=== PATIENT | female | born 1995 | race Caucasian/White ===

== ENCOUNTER 2016-10-01 18:41 | Emergency (ER) | payer BC, MEDICAID ==
[2016-10-01 19:32] VITALS: BP 107/62
--- NOTE | 2016-10-01 20:44 | UC ---
Complaint Female HPI - HPI Summary HPI Summary: pt states she has vaginal swelling and itching and discharge x 5 days. States she has not had intercourse in 2.5 months and states she has never had an STD, so does not think she has an STD. States she has acute severe pain right at the urethral meatus. No hematuria. No dysuria. No blister lesions. States she was tested for STD's after her last intercourse and it was negative. States her body is "just getting back to normal". States she had an more than a year ago and she bled every day for almost a year. States she has had BV before and this feels like BV. - History Of Current Complaint Chief Complaint: UCGU Stated Complaint: PERSONAL Time Seen by Provider: 10/01/16 19:56 Hx Obtained From: Patient Hx Last Menstrual Period: 09/21/16 Onset/Duration: Gradual Onset, Lasting Days, Still Present Timing: Constant Severity Initially: Moderate Severity Currently: Moderate Pain Intensity: 7 Pain Scale Used: 0-10 Numeric Character: Burning Aggravating Factor(s): Nothing Alleviating Factor(s): Nothing Associated Signs And Symptoms: Positive: Vaginal Discharge, Genital Swelling. Negative: Fever, Nausea, Vomiting(# Of Episodes =), Genital Blisters - Allergies/Home Medications Allergies/Adverse Reactions: Allergies Allergy/AdvReac Type Severity Reaction Status Date / Time Ketorolac Tromethamine Allergy Hives Verified 10/01/16 19:32 [From Toradol] Tamsulosin [From Flomax] Allergy Hives Verified 10/01/16 19:32 albuterol ? Allergy temporary Uncoded 10/01/16 19:32 paralysis control pills Allergy Bleeding Uncoded 10/01/16 19:35 PMH/Surg Hx/FS Hx/Imm Hx Previously Healthy: Yes - Surgical History Surgical History: Yes Surgery Procedure, Year, and Place: JAW SXl wisdom teeth, right breast benign tumor 2014 - Family History Known Family History: Positive: None - Social History Alcohol Use: Occasionally Substance Use Type: None Smoking Status (MU): Never Smoked Tobacco Have You Smoked in the Last Year: No Household Exposure Type: Cigarettes - Immunization History Vaccination Up to Date: Yes Review of Systems Constitutional: Negative Skin: Negative Eyes: Negative ENT: Negative Respiratory: Negative Cardiovascular: Negative Gastrointestinal: Negative Genitourinary: Other - vag discharge, itching Motor: Negative Neurovascular: Negative Musculoskeletal: Negative Neurological: Negative Psychological: Negative All Other Systems Reviewed And Are Negative: Yes Physical Exam Triage Information Reviewed: Yes Appearance: Well-Appearing, Well-Nourished, Pain Distress Vital Signs: Initial Vital Signs Temp 98.4 F 10/01/16 19:26 Pulse 80 10/01/16 19:26 Resp 18 10/01/16 19:26 BP 107/62 10/01/16 19:26 Vital Signs Reviewed: Yes Eyes: Positive: Conjunctiva Clear ENT: Positive: Normal ENT inspection Neck: Positive: Supple Respiratory: Positive: No respiratory distress Cardiovascular: Positive: Brisk Capillary Refill Abdomen Description: Positive: Nontender, No Organomegaly, Soft, Other: - Pelvic exam: moderate amount thin white discharge; cervix nontender, closed; uterus nontender, mobile; adnexae no masses, nontender; labial swelling; no blisters or fissure or lesion near urethral meatus. Negative: Distended, Guarding, McBurney's Point Tenderness, Peritoneal Signs Bowel Sounds: Positive: Present Musculoskeletal: Positive: Strength Intact, ROM Intact Neurological: Positive: Alert, Muscle Tone Normal Psychological Exam: Normal Skin Exam: Normal Complaint Female Dx - Course Course Of Treatment: pelvic exam done, cultures sent. Will treat empirically for both BV and palak. Can stop flagyl if affirm is negative. - Differential Dx/Diagnosis Differential Diagnosis/HQI/PQRI: Cervicitis, Pelvic Inflammatory Disease, Sexually Transmitted Disease, Urinary Tract Infection Provider Diagnoses: vaginitis Discharge - Discharge Plan Condition: Stable Disposition: HOME Prescriptions: Fluconazole 150 MG (NF) [Diflucan 150 mg (NF)] 150 mg PO ONCE #2 tab Metronidazole [Flagyl 500 MG TAB] 500 mg PO BID #14 tab Triamcinolone 0.1% CREAM (NF) [Kenalog 0.1% Cream (NF)] 1 applic TOPICAL BID #1 tube Patient Education Materials: Bacterial Vaginosis (ED), Vulvovaginal Candidiasis (ED) Referrals: Nellie Johansen MD [Medical Doctor] - Additional Instructions: We have sent the pelvic cultures and tests. We have decided to treat for BV and a yeast infection because you have such severe symptoms, we want to start treatment right away. We will contact you if you need additional treatment based on the tests we have sent, and we will contact you if you may stop any treatment based on the tests. You may apply a small amount of steroid cream externally to the labia to help with swelling and itching. If it makes it worse, you do not have to continue it. You may also continue your vagisil and Summer[employer] Veronica products if they do not make it worse. Return to urgent care if you have any new or worsening symptoms.
--- NOTE | 2016-10-04 07:11 | UC ---
Progress - Progress Note Progress Note: notify pt no BV stop flagyl recheck with her MD if still symptomatic
== END 2016-10-01 20:43 | disposition home or self-care (01) ==
LOC: UCCORT 18:41
DX: N76.0 Acute vaginitis (principal)
CPT/HCPCS: 81003; 84702; 87086; 87480; 87491; 87510; 87591; 87661; 99212; G0463

== ENCOUNTER 2017-03-28 12:52 | Emergency (ER) | payer BC, MEDICAID ==
[2017-03-28 13:09] VITALS: BP 122/74
--- NOTE | 2017-03-28 13:31 | UC ---
Cardiac HPI - HPI Summary HPI Summary: 21 year old female presents with severe left sided chest pain. On a side note she was placed ZPAK for a sinus infection a week ago. - History of Current Complaint Chief Complaint: UCChestPain Stated Complaint: CHEST PAIN Time Seen by Provider: 03/28/17 13:22 Hx Obtained From: Patient Hx Last Menstrual Period: 03/24/17 Onset/Duration: Sudden Onset, Lasting Days Initial Severity: Severe Current Severity: Severe Chest Pain Location: Left Anterior Character: Fast Aggravating Factor(s): Exertion Alleviating Factor(s): Position Associated Signs & Symptoms: Positive: Chest Pain - Allergy/Home Medications Allergies/Adverse Reactions: Allergies Allergy/AdvReac Type Severity Reaction Status Date / Time Ketorolac Tromethamine Allergy Hives Verified 03/28/17 13:00 [From Toradol] Tamsulosin [From Flomax] Allergy Hives Verified 03/28/17 13:00 albuterol ? Allergy temporary Uncoded 03/28/17 13:00 paralysis control pills Allergy Bleeding Uncoded 03/28/17 13:00 Home Medications: Home Medications Azithromycin TAB* [Zithromax TAB (Z-KALEY) 250 mg #6 tabs] 250 mg PO DAILY [History Confirmed 03/28/17] Nortriptyline CAP* [Pamelor CAP*] 10 mg PO BEDTIME 03/28/17 [History Confirmed 03/28/17] PMH/Surg Hx/FS Hx/Imm Hx - Surgical History Surgical History: Yes Surgery Procedure, Year, and Place: JAW SXl wisdom teeth, right breast benign tumor 2014 - Family History Known Family History: Positive: None - Social History Alcohol Use: Occasionally Substance Use Type: None Smoking Status (MU): Never Smoked Tobacco Have You Smoked in the Last Year: No Household Exposure Type: Cigarettes - Immunization History Vaccination Up to Date: Yes Review of Systems Constitutional: Negative Skin: Negative Eyes: Negative ENT: Negative Respiratory: Negative Cardiovascular: Palpitations, Chest Pain Gastrointestinal: Negative Genitourinary: Negative Motor: Negative Neurovascular: Negative Musculoskeletal: Negative Neurological: Negative Psychological: Negative All Other Systems Reviewed And Are Negative: Yes Physical Exam Triage Information Reviewed: Yes Appearance: Ill-Appearing Vital Signs: Initial Vital Signs Temp 36.8 C 03/28/17 13:02 Pulse 113 03/28/17 13:02 Resp 20 03/28/17 13:02 BP 122/74 03/28/17 13:02 Pulse Ox 100 03/28/17 13:02 Vital Signs Reviewed: Yes Eye Exam: Normal ENT Exam: Normal Dental Exam: Normal Neck exam: Normal Neck: Positive: 1 Respiratory Exam: Normal Cardiovascular Exam: Normal Abdominal Exam: Normal Musculoskeletal Exam: Normal Neurological Exam: Normal Psychological Exam: Normal Skin Exam: Normal - Clinical Impression Provider Diagnoses: chest pain Discharge - Discharge Plan Condition: Stable Disposition: OTHER Discharge Disposition Comment: patient suggested to go to the er for chets pain Patient Education Materials: Chest Pain (ED) Referrals: BRANDI Gomez [Primary Care Provider] - Additional Instructions: patient suggested to go to the er.
== END 2017-03-28 13:30 ==
LOC: UCCORT 12:52
DX: R07.89 Other chest pain (principal); R00.0 Tachycardia, unspecified; Z88.5 Allergy status to narcotic agent; Z77.22 Contact with and (suspected) exposure to environmental tobacco smoke (acute) (chronic)
CPT/HCPCS: 93005; 99212; G0463

== ENCOUNTER 2017-04-30 15:25 | Emergency (ER) | payer BC, MEDICAID ==
[2017-04-30 15:45] VITALS: BP 125/98
== END 2017-04-30 17:28 | disposition left against medical advice (07) ==
LOC: UCCORT 15:25
DX: M79.601 Pain in right arm (principal); Y35.811A Legal intervention involving manhandling, law enforcement official injured, initial encounter; Z53.21 Procedure and treatment not carried out due to patient leaving prior to being seen by health care provider

== ENCOUNTER 2017-11-17 17:23 | Emergency (ER) | payer BC, MEDICAID ==
[2017-11-17 17:52] VITALS: BP 106/69
--- NOTE | 2017-11-17 18:49 | UC ---
Throat Pain/Nasal Yared HPI - HPI Summary HPI Summary: 22-year-old female presents with 3 day history of nasal congestion, hoarseness, and a nonproductive cough. She is also complaining of feeling the urge to urinate but having to strain to void. She denies any fever, chills, ear pain or drainage, sore throat, chest pain, shortness of breath, abdominal pain, nausea, vomiting, dysuria, frequency, hematuria, or vaginal discharge. She is presently having her menses. She states that she was hospitalized about a week and a half ago at [facility] for pancreatitis of unknown cause. She states she has had in upper endoscopy done while in the hospital and she is scheduled for testing including a HIDA scan and colonoscopy. - History of Current Complaint Chief Complaint: UCGeneralIllness Stated Complaint: URINARY, CONGESTION Time Seen by Provider: 11/17/17 18:14 Hx Obtained From: Patient Hx Last Menstrual Period: 11/15/17 ?: No Onset/Duration: Gradual Onset Pain Intensity: 0 Cough: Nonproductive Associated Signs & Symptoms: Positive: Hoarseness, Nasal Discharge. Negative: Dysphagia, Wheezing, Sinus Discomfort, Fever, Vomiting, Rash - Allergies/Home Medications Allergies/Adverse Reactions: Allergies Allergy/AdvReac Type Severity Reaction Status Date / Time albuterol Allergy See Comment Verified 11/17/17 17:43 ketorolac [From Toradol] Allergy Hives Verified 11/17/17 17:43 tamsulosin [From Flomax] Allergy Hives Verified 11/17/17 17:43 venlafaxine [From Effexor] Allergy "All of Verified 11/17/17 17:43 them, every single side effect you can think of." control pill Allergy Bleeding Uncoded 11/17/17 17:43 Home Medications: Home Medications Bisacodyl EC TAB* [Dulcolax EC TAB*] 5 - 10 mg PO DAILY PRN 11/17/17 [History Confirmed 11/17/17] Fluticasone NASAL SPRAY 50MCG* [Flonase NASAL SPRAY 50MCG*] 2 spray BOTH NARES DAILY PRN 11/17/17 [History Confirmed 11/17/17] Gabapentin CAP(*) [Neurontin 100 mg CAP(*)] 100 mg PO TID 11/17/17 [History Confirmed 11/17/17] diPHENhydraMINE PO* [Benadryl PO 25 MG TAB*] 50 mg PO DAILY 11/17/17 [History Confirmed 11/17/17] PMH/Surg Hx/FS Hx/Imm Hx Previously Healthy: Yes Other Neurological History: Postconcussive syndrome Other Psychological History: Pancreatitis - Surgical History Surgical History: Yes Surgery Procedure, Year, and Place: JAW SXl wisdom teeth, right breast benign tumor 2014 - Family History Family History: Noncontributory - Social History Occupation: Employed Full-time Lives: With Family Alcohol Use: None Substance Use Type: None Smoking Status (MU): Never Smoked Tobacco Have You Smoked in the Last Year: No Household Exposure Type: Cigarettes - Immunization History Vaccination Up to Date: Yes Review of Systems Constitutional: Negative Skin: Negative Eyes: Negative ENT: Nasal Discharge, Sinus Congestion Respiratory: Cough Cardiovascular: Negative Gastrointestinal: Negative Genitourinary: Urgency, Other - urinary hesitency Is Patient Immunocompromised?: No All Other Systems Reviewed And Are Negative: Yes Physical Exam Triage Information Reviewed: Yes Appearance: Well-Appearing, No Pain Distress Vital Signs: Initial Vital Signs Temp 97.3 F 11/17/17 17:39 Pulse 90 11/17/17 17:39 Resp 16 11/17/17 17:39 BP 106/69 11/17/17 17:39 Pulse Ox 100 11/17/17 17:39 Vital Signs Reviewed: Yes Eyes: Positive: Conjunctiva Clear. Negative: Discharge ENT: Positive: Pharyngeal erythema - Mild with cobblestoning, Nasal congestion, TMs normal, Hoarse voice, Uvula midline. Negative: Tonsillar swelling, Tonsillar exudate, Trismus, Muffled voice, Sinus tenderness Neck: Positive: Supple, Nontender, No Lymphadenopathy Respiratory: Positive: Lungs clear, Normal breath sounds, No respiratory distress Cardiovascular: Positive: RRR, No Murmur Abdomen Description: Positive: Nontender, No Organomegaly, Soft. Negative: CVA Tenderness (R), CVA Tenderness (L) Bowel Sounds: Positive: Present Neurological: Positive: Alert Skin Exam: Normal Throat Pain/Nasal Course/Dx - Course Course Of Treatment: 22-year-old female presents with multiple complaints. For past 3 days she has noted nasal congestion, hoarseness, and nonproductive cough. She is also complaining of having the urge to urinate but needing to strain in order to avoid over the same time period. She is providing a history of recent hospitalization for pancreatitis of unknown cause however she is very vague regarding details of this hospitalization. She states that she underwent an endoscopy that was negative as well has what sounds like a HIDA scan which she says was not done improperly and asked to be rescheduled. She also states that she is scheduled for a colonoscopy although unsure of exact date. She is afebrile, vital signs are stable, and she is nontoxic in appearance. Her upper respiratory symptoms are consistent with a viral infection. Urinalysis shows 1 + protein, trace glucose, 1+ ketones, 2+ blood, and 1+ bilirubin however she is presently having her menses therefore do not feel that this represents a urinary tract infection. Urine was negative. Urine culture was sent. Recommend symptomatic treatment for her upper respiratory infection, follow up with primary care provider in 3 days for reevaluation of her urinary symptoms pending the culture results. - Differential Dx/Diagnosis Provider Diagnoses: Viral URI, urinary hesitancy Discharge - Sign-Out/Discharge Documenting (check all that apply): Patient Departure All imaging exams completed and their final reports reviewed: No Studies - Discharge Plan Condition: Stable Disposition: HOME Patient Education Materials: Upper Respiratory Infection (ED) Referrals: Katina Moore [Primary Care Provider] - 3 Days Additional Instructions: Your urine test in the office today did not show any evidence of urinary tract infection. I will send the urine for culture to see if any bacteria grow out. It will take 48-72 hours to get these results. If there is evidence of infection from the culture we will contact you and start you on an appropriate antibiotic. Make sure you push fluids. I would avoid alcohol and caffeine as these can make you dehydrated. Your upper respiratory symptoms are likely from a viral infection. Viral infections do not respond to antibiotics and we simply treat the symptoms. Viral infections typically last 7-10 days. Use a saline rinse such as Netti Pot to help with the nasal congestion. Continue using the Flonase or try switching to another brand such as Nasacort or Nasonex which tend not to burn like the Flonase. I would recommend using a decongestant such as Sudafed to help with the congestion. Follow up with your primary care provider in 3 days for recheck of the urine symptoms. Seek immediate medical attention if you develop fever greater than 100.5 F, have severe abdominal pain, persistent vomiting, or any worsening of symptoms. - Billing Disposition and Condition Condition: STABLE Disposition: Home
== END 2017-11-17 19:05 | disposition home or self-care (01) ==
LOC: UCCORT 17:23
DX: Z88.8 Allergy status to other drugs, medicaments and biological substances (principal); J06.9 Acute upper respiratory infection, unspecified; R39.11 Hesitancy of micturition
CPT/HCPCS: 81003; 84702; 87077; 87086; 99212; G0463

== ENCOUNTER 2018-03-21 13:06 | Emergency (ER) | payer BC ==
[2018-03-21 14:22] VITALS: BP 115/65
--- NOTE | 2018-03-21 15:03 | UC ---
Complaint Female HPI - HPI Summary HPI Summary: 22-year-old female presents with one-week history of vaginal itching without discharge. Patient states that she is approximately 10 weeks . Last menstrual period 01/11/2018 which calculates to a gestational age of 9 weeks 6 days with an estimated date of delivery of October 18, 2018. She has not established with an NEUROSURGERY PHYSICIAN at this time. Denies fever, chills, abdominal pain, nausea, vomiting, diarrhea, dysuria, urgency, hematuria, or abnormal vaginal bleeding. States she is not currently sexually active. - History Of Current Complaint Chief Complaint: UCGU Stated Complaint: PERSONAL Time Seen by Provider: 03/21/18 15:00 Hx Obtained From: Patient Hx Last Menstrual Period: 01/15/18 ?: Yes Pain Intensity: 0 - Allergies/Home Medications Allergies/Adverse Reactions: Allergies Allergy/AdvReac Type Severity Reaction Status Date / Time albuterol Allergy See Comment Verified 03/21/18 14:09 ketorolac [From Toradol] Allergy Hives Verified 03/21/18 14:09 tamsulosin [From Flomax] Allergy Hives Verified 03/21/18 14:09 venlafaxine [From Effexor] Allergy "All of Verified 03/21/18 14:09 them, every single side effect you can think of." control pill Allergy Bleeding Uncoded 03/21/18 14:09 Home Medications: Home Medications Dexlansoprazole [Dexilant] 60 mg PO DAILY 03/21/18 [History Confirmed 03/21/18] Lubiprostone [Amitiza] 48 mcg PO DAILY 03/21/18 [History Confirmed 03/21/18] Minocycline HCl 50 mg PO DAILY 03/21/18 [History Confirmed 03/21/18] PMH/Surg Hx/FS Hx/Imm Hx Previously Healthy: Yes GI/ History: Gastroesophageal Reflux, Other - IBS, constipation - Surgical History Surgical History: Yes Surgery Procedure, Year, and Place: JAW SXl wisdom teeth, right breast benign tumor 2014 - Family History Known Family History: Positive: Non-Contributory Family History: Noncontributory - Social History Occupation: Employed Full-time Lives: With Family Alcohol Use: None Substance Use Type: None Smoking Status (MU): Never Smoked Tobacco Have You Smoked in the Last Year: No Household Exposure Type: Cigarettes - Immunization History Vaccination Up to Date: Yes Review of Systems All Other Systems Reviewed And Are Negative: Yes Constitutional: Negative: Fever, Chills Skin: Negative: Rash Respiratory: Positive: Negative Cardiovascular: Positive: Negative Gastrointestinal: Negative: Abdominal Pain, Vomiting, Diarrhea, Nausea Genitourinary: Positive: Vaginal/Penile Itching. Negative: Dysuria, Hematuria, Frequency, Urgency, Vaginal/Penile Discharge, Abnormal Bleeding Musculoskeletal: Positive: Negative Neurological: Positive: Negative Is Patient Immunocompromised?: No Physical Exam - Summary Physical Exam Summary: GENERAL APPEARANCE: Well developed, well nourished, alert and cooperative, and appears to be in no acute distress. CARDIAC: Normal S1 and S2. No S3, S4 or murmurs. Rhythm is regular. There is no peripheral edema, cyanosis or pallor. Extremities are warm and well perfused. Capillary refill is less than 2 seconds. LUNGS: Clear to auscultation and percussion without rales, rhonchi, wheezing or diminished breath sounds. ABDOMEN: Positive bowel sounds. Soft, nondistended, nontender. No guarding or rebound. No masses or hepatosplenomegally. PELVIC: Deferred by patient. MUSKULOSKELETAL: ROM intact to all extremities. No joint erythema or tenderness. Normal muscular development. Normal gait. SKIN: Skin normal color, texture and turgor with no lesions or eruptions. Triage Information Reviewed: Yes Vital Signs: Initial Vital Signs Temp 97.9 F 03/21/18 14:14 Pulse 94 03/21/18 14:14 Resp 14 03/21/18 14:14 BP 115/65 03/21/18 14:14 Pulse Ox 100 03/21/18 14:14 Vital Signs Reviewed: Yes Diagnostics - Laboratory Diagnostic Studies Completed/Ordered: POC urinalysis negative. Urine positive. Urine culture pending. Complaint Female Dx - Course Course Of Treatment: 22-year-old female presents with one-week history of vaginal itching without discharge. Patient states that she is approximately 10 weeks . Last menstrual period 01/11/2018 which calculates to a gestational age of 9 weeks 6 days with an estimated date of delivery of September. She has not established with an NEUROSURGERY PHYSICIAN at this time. Denies fever, chills, abdominal pain, nausea, vomiting, diarrhea, dysuria, urgency, hematuria , or abnormal vaginal bleeding. States she is not currently sexually active. Afebrile. Vital signs stable. Exam was unremarkable although she elected for her pelvic exam at this time. POC UA negative. Positive urine . Discussed with patient routinely screening for STIs, BV, trichimonas, and palak since she was and had not established with OB however she declines at this time as she was seen at [facility] ED when she was approximately 5 weeks and she thinks they tested her at that time. Will send urine for culture. Recommending OTC Monistat for symptoms. She was provided number for [facility] Physician Referral Service to assist with establishing with OB. Warning symptoms reviewed with patient. Verbalizes understanding and agrees with POC. - Differential Dx/Diagnosis Differential Diagnosis/HQI/PQRI: Pelvic Inflammatory Disease, , Sexually Transmitted Disease, Urinary Tract Infection Provider Diagnosis: Vaginitis Discharge - Sign-Out/Discharge Documenting (check all that apply): Patient Departure All imaging exams completed and their final reports reviewed: No Studies - Discharge Plan Condition: Stable Disposition: HOME Patient Education Materials: Vaginitis (ED) Referrals: Katina Moore [Primary Care Provider] - [facility] PHYSICIAN REFERRAL [Outside] (Call for assistance establishing with NEUROSURGERY PHYSICIAN.) Additional Instructions: The urine test performed in the clinic today showed no evidence of a urinary tract infection. We will send the urine for culture to ensure there is no infection since you are . The oral treatment for vaginal yeast infection (Diflucan) is not recommended during there I would recommend using over the counter Monistat according to directions. I have given you the number for the [facility] Physician Referral Service to assist you with establishing with an NEUROSURGERY PHYSICIAN. Seek immediate medical attention in the emergency room if you develop fever greater than 100.5 F, have severe abdominal pain, vaginal bleeding, or any worsening of symptoms. - Billing Disposition and Condition Condition: STABLE Disposition: Home
== END 2018-03-21 15:38 | disposition home or self-care (01) ==
LOC: UCCORT 13:06
DX: N76.0 Acute vaginitis (principal); Z88.8 Allergy status to other drugs, medicaments and biological substances; Z88.6 Allergy status to analgesic agent
CPT/HCPCS: 81003; 84702; 87086; 99211; G0463

== ENCOUNTER 2018-04-24 11:02 | Day surgery (SDC) | payer BC ==
[~2018-04-24 11:02] MED LIST: Buffered Lidocaine 1% SYRIN* 1 ML/SYRINGE INTRADERM ONE; Dexamethasone TAB* 4 MG PO ONE; DiMENhydriNATE IV* 50 MG/ML VIAL IV PUSH PRN; Famotidine IV* 10 MG/ML 2 ML (20 mg) IV ONE; Lactated Ringers 1000 ML Bag* 1,000 ML IV SCH; Naloxone* 0.4 MG/ML 1 ML VIAL IV PRN; Ondansetron INJ* 2 MG/ML VIAL ONE; PROCHLORPERAZINE INJ 5 MG/ML 2 ML VIAL IV PRN; oxyCODONE/Acetamin 5/325 MG* TAB PO PRN
[2018-04-24] MEDS ORDERED: KETAMINE HCL* 50 MG/ML 10 ML VIAL ONE (11:12)
[2018-04-24] MEDS ORDERED: fentaNYL* 50 MCG/ML 2 ML VIAL (100 MCG VIAL) ONE ×2 (11:12→14:25)
[2018-04-24] MEDS ORDERED: Midazolam* 1 MG/ML 5 ML VIAL (5 MG) ONE (11:13)
[2018-04-24] MEDS ORDERED: Bupivacaine 0.5%* 50 ML VIAL ONE (13:07)
[2018-04-24] MEDS ORDERED: Lidocaine 2% JELLY* 6 ML JELLY TOPICAL ONE (13:07)
[2018-04-24] MEDS ORDERED: Ondansetron ODT TAB* 4 MG ONE (13:30)
[2018-04-24] MEDS ORDERED: Famotidine IV* 10 MG/ML 2 ML (20 mg) ONE (13:30)
[2018-04-24] MEDS ORDERED: ceFOXitin 2 GM IVPREMIX* 2 GM/50 ML BAG ONE (13:30)
[2018-04-24] MEDS ORDERED: Dexamethasone TAB* 4 MG ONE (13:30)
[2018-04-24] MEDS ORDERED: Ketorolac INJ* 30 MG/ML 1 ML VIAL ONE (13:57)
[2018-04-24] MEDS ORDERED: Propofol* 10 MG/ML 20 ML BTL ONE (13:57)
[2018-04-24] MEDS ORDERED: Gelfoam 12-7 ADSORBABL SPONGE* 1 EA SPONGE ONE (14:02)
[2018-04-24] MEDS ORDERED: Bacitracin OINTMENT* 0.5% 0.5 oz TUBE ONE (14:03)
[2018-04-24] MEDS ORDERED: Morphine VIAL* 4 MG/ML VIAL (1 ml vial) ONE ×3 (14:17→14:37)
[2018-04-24] MEDS: Morphine VIAL* 4 MG/ML VIAL (1 ml vial) IV PRN ×2 (14:18→14:28)
[2018-04-24] MEDS: fentaNYL* 50 MCG/ML 2 ML VIAL (100 MCG VIAL) IV PRN ×4 (14:28→15:12)
[2018-04-24] MEDS ORDERED: HYDROcodone/ACETAMIN 5-325 MG* 1 TAB ONE (14:30)
[2018-04-24 16:04] VITALS: BP 124/74
--- NOTE | 2018-04-24 20:37 | OP ---
OPERATIVE REPORT: DATE OF OPERATION: 04/24/18 DATE OF : 89 SURGEON: Roberto Jones MD PRE-OP DIAGNOSIS: Anal fissure, skin tag. POST-OP DIAGNOSIS: Anal fissure, skin tag. OPERATIVE PROCEDURE: Rectal examination under anesthesia, lateral internal sphincterotomy, excise sm all anal skin tag. INDICATION FOR PROCEDURE: Persistent pain and fissure since December. The patient refusing any conse rvative treatment, namely nitroglycerin ointment, Botox, stool softeners, sitz baths. Risks of surge ry included, but not limited to bleeding, infection, temporary or permanent incontinence to gas or st ool, persistent fissure explained to the patient. She seemed to understand, agreed to the procedure, wished to proceed, and all questions were answered. Preoperatively, she informed us after her urine test was positive that she had an last week. This was confirmed by calling Dr. Mana Menendez's office who performed the and sent the path sheet to us. This was done on . The anesthesiologist, Dr. Chen, was aware and agreed to proceed. DESCRIPTION OF PROCEDURE: In the operating room, in the prone jackknife position with the buttocks t aped apart, the perianal area prepped and draped in sterile fashion. Time-out was performed, correct procedure, correct patient. Digital rectal examination revealed no masses. The posterior midline i ncision was easily noted along with the sentinel skin tag. A retractor was placed in the rectum. No rectal abnormalities were noted in the distal rectum. The skin on the left lateral aspect of the an us along the intersphincteric groove was anesthetized with 0.5% Marcaine plain. Incision was made an d curved hemostat was placed in the intersphincteric groove and small portion, 10% or less of the int ernal sphincter was isolated and divided with Bovie cautery. The wound was irrigated. The skin was closed with a 3-0 chromic suture. The small skin tag was excised sharply, Bovie cauterized at the ba se and closed with a chromic stitch as well. Antibiotic ointment and a Gelfoam were placed and the a sana covered with dressing. EBL was minimal. She tolerated the procedure well. She was taken to Rec [facility] in stable condition. [id number]/[facility] #: [id number]
== END 2018-04-24 16:11 | disposition home or self-care (01) ==
LOC: OR 11:02
PROVIDERS: ATTEND Surgery
DX: K60.1 Chronic anal fissure (principal); K62.0 Anal polyp
CPT/HCPCS: 81025; 88304; A9270-GY; J0694; J1885; J2250; J2270; J2704; J3010; J8540